=== PATIENT | female | born 1930 | race Caucasian/White ===

== ENCOUNTER 2020-11-12 19:27 | Inpatient (IN) ==
[2020-11-12] MEDS ORDERED: 0.9 % SODIUM CHLORIDE 1,000 ML IV SCH (20:58)
[2020-11-12] MEDS ORDERED: ACETAMINOPHEN 325 MG TABLET PO PRN (20:58)
[2020-11-12] MEDS ORDERED: ONDANSETRON 4 MG/2 ML VIAL IV PRN (20:58)
[2020-11-12] MEDS ORDERED: oxyCODONE/APAP 5/325MG TABLET PO PRN (20:58)
[2020-11-12] MEDS ORDERED: SENNOSIDES 1 TABLET PO SCH (21:00)
--- NOTE | 2020-11-12 21:16 | Internal Med History&Physical ---
HPI History of Present Illness Patient information: Note initiated : 11/12/20 at 9:02 pm Service Date, if different from initiated Date: [] Patient: Lisa Kwok 89 y/o F admitted on 11/12/20 for abdominal pain. Chief Complaint: [] History of present illness: Ms. Kwok is a 89 year old with a history of atrial fibrillation, rheumatoid arthritis, colon cancer status post right fox- colectomy who presented to [facility] for sudden onset of right pain in her right lower abdomen and right flank pain. According to signout report the ED physician and accompanying documentation, the CT scan showed right hydronephrosis, retroperitoneal adenopathy including in the ureter and a mass in the pelvis. Concern for recurrent colon cancer incasing the right ureter and causing right hydronephrosis. Urology consultation was not available at the outside hospital therefore the patient was transferred to [facility] for urgent intervention. Review of systems Unable to obtain due to severe distress secondary to pain. Head: Atraumatic, normal inspection. Eyes: normal appearance, no scleral icterus. Neck: full ROM Respiratory: no respiratory distress. Cardiovascular: normal rate and rhythm, S1, S2. GI/Abdominal: Right flank tenderness, right lower quadrant and inguinal tenderness. Extremities: full range of motion, nontender. Neurological: CN II-XII intact, intact motor, intact sensation. Psychiatric: Patient is anxious, appears to be in severe pain Skin: warm, normal color PFSH PFSH All Active Problems (Updated 11/12/20 @ 21:24 by Martín Hernandez MD) Hydronephrosis (Acute) Medical History (Updated 11/12/20 @ 21:24 by Martín Hernandez MD) Anxiety Atrial fibrillation Colon cancer Hypothyroidism Rheumatoid arthritis Surgical History (Updated 11/12/20 @ 21:24 by Martín Hernandez MD) History of right hemicolectomy Family History (Updated 11/12/20 @ 21:25 by Martín Hernandez MD) Brother No problems noted. MEDS/ALLERGIES Home Medications and Allergies Allergies Allergy/AdvReac Type Severity Reaction Status Date / Time Cyclobenzaprine Allergy Unknown Unknown Verified 11/12/20 21:29 doxycycline Allergy Unknown Unknown Verified 11/12/20 21:29 fluticasone Allergy Unknown Unknown Verified 11/12/20 21:29 nitrofurantoin Allergy Unknown Unknown Verified 11/12/20 21:29 phenylbutazone Allergy Unknown Unknown Verified 11/12/20 21:29 tramadol Allergy Unknown Unknown Verified 11/12/20 21:29 EXAM Constitutional Vitals: Temp Pulse Resp BP Pulse Ox 98.7 F 97 H 16 115/67 100 11/12/20 20:57 11/12/20 20:57 11/12/20 20:57 11/12/20 20:57 11/12/20 20:57 A/P Narrative A/P Narrative: Assessment: 89-year-old female with history of atrial fibril lation (on eliquis), rheumatoid arthritis, anxiety, hypothyroidism, colon cancer s/p right hemicolectomy directly admitted from [facility] ED for acute pain secondary to right hydronephrosis with CT scan showing retroperitoneal adenopathy causing ureteral occlusion. The patient was also found to have an acute kidney injury. Retroperitoneal adenopathy probably due to progression of colon cancer. #Right hydronephrosis due to retroperitoneal adenopathy #Acute kidney injury #Hyponatremia #Metabolic acidosis #Leukopenia #Macrocytic anemia #Atrial fibrillation: on eliquis #Rheumatoid arthritis: on methotrexate #Colon cancer Plan -Analgesics as needed. -IV fluid. -Urology consult. -Admission labs, INR, EKG -Follow renal function and urine output. -Renally dose meds. -Medication reconciliation, holding eliquis and methotrexate. -NPO -DVT PPx: SCDs for now -CODE STATUS: DNR, reviewed POLST -Disposition: Likely home with oncology and urology follow up. Time Spent With Patient Time: Total time spent is greater than 50% in coordination of care (as documented) at patient's floor/unit and/or counseling patient:
[2020-11-12] MEDS ORDERED: HYDROmorphone 0.5 MG/0.5 ML SYRINGE ONE (21:25)
[2020-11-12] MEDS: HYDROmorphone 0.5 MG/0.5 ML SYRINGE IV PRN (21:30)
[2020-11-12] MEDS: 0.9 % SODIUM CHLORIDE 10 ML SYRINGE IV SCH (21:33)
--- NOTE | 2020-11-12 21:33 | General Surgery Consult Note ---
HPI Data of Consult Primary Care Provider: Maninder Peters Family Provider: 89 YO white female with bilateral hydronephrosis and colon cancer with obstruction with marked adenopathy and flank pain worse right than left Now admitted in transfer from [facility]. Consult Narrative Reason for consult: colon cancer with bilateral hydronephrosis cc:: CC: Martín Hernandez MD PFSH PFSH All Active Problems (Updated 11/12/20 @ 21:24 by Martín Hernandez MD) Hydronephrosis (Acute) Medical History (Updated 11/12/20 @ 21:24 by Martín Hernandez MD) Anxiety Atrial fibrillation Colon cancer Hypothyroidism Rheumatoid arthritis Surgical History (Updated 11/12/20 @ 21:24 by Martín Hernandez MD) History of right hemicolectomy Family History Brother No problems noted. MEDS/ALLERGIES Home Medications and Allergies Allergies Allergy/AdvReac Type Severity Reaction Status Date / Time Cyclobenzaprine Allergy Unknown Unknown Verified 11/12/20 21:29 doxycycline Allergy Unknown Unknown Verified 11/12/20 21:29 fluticasone Allergy Unknown Unknown Verified 11/12/20 21:29 nitrofurantoin Allergy Unknown Unknown Verified 11/12/20 21:29 phenylbutazone Allergy Unknown Unknown Verified 11/12/20 21:29 tramadol Allergy Unknown Unknown Verified 11/12/20 21:29 Physical Examination Vital Signs Vital signs: Temp Pulse Resp BP Pulse Ox 98.7 F 97 H 16 115/67 100 11/12/20 20:57 11/12/20 20:57 11/12/20 20:57 11/12/20 20:57 11/12/20 20:57 General physical appearance General physical exam: severe distress (right flank pain), cachectic and chronically ill Cardiovascular Cardiovascular exam IM: Present irregular rhythm Abdomen Abdomen: Present tender (right flank tenderness ) Results Labs Result diagrams: 11/12/20 21:05 11/12/20 21:05 Labs: All other labs normal. A/P Narrative A/P Narrative: renal failure with bilateral hydronephrosis likely second to adenopathy retroperitoneal and recurrent cancer atrial fib with chronic anticoagulation with Eliquis Plan: consent for cysto and attempted right and possible left ureteral stent placement POA and patient understand and agree to plan as outlined understanding that may not be able to bypass and nephrostomy and still needs likely Oncology decision on chemo etc pending renal function Time Spent With Patient Time: Total time spent is greater than 50% in coordination of care (as documented) at patient's floor/unit and/or counseling patient:
[2020-11-12] MEDS ORDERED: ceFAZolin 2 GM in DEXTROSE 5% IN WATER 50 ML IV SCH (21:45)
[2020-11-12 22:04] LABS: Hematocrit 28.7 % (36.0-48.0); Mean Cell Volume 95.3 fL (80.0-100.0); Mean Corpuscular HGB Conc 34.8 g/dL (31.0-36.0); Mean Platelet Volume 9.3 fL (7.4-10.4); Platelet Count 224 K/mcL (140-440); RBC 3.01 M/mcL (4.00-5.20); Red Cell Distribution Width 14.9 % (11.5-14.5)
[2020-11-12] MEDS ORDERED: GLYCOPYRROLATE 0.2 MG/ML VIAL IV ONE (22:15)
[2020-11-12] MEDS ORDERED: PHENYLEPHRINE 10 MG/ML VIAL ONE (22:15)
[2020-11-12] MEDS ORDERED: fentaNYL 100 MCG/2 ML VIAL IV ONE (22:15)
[2020-11-12] MEDS ORDERED: DEXAMETHASONE 10 MG/ML VIAL ONE (22:15)
[2020-11-12] MEDS ORDERED: ONDANSETRON 4 MG/2 ML VIAL ONE (22:15)
[2020-11-12] MEDS ORDERED: KETAMINE 100 MG/ML ML ONE (22:15)
[2020-11-12] MEDS ORDERED: PROPOFOL 200 MG/20 ML VIAL IV ONE (22:15)
[2020-11-12] MEDS ORDERED: LIDOCAINE HCL/PF 100 MG/5 ML SYRINGE IV ONE (22:15)
[2020-11-12 22:17] LABS: INR 1.3 (0.9-1.1)
[2020-11-12] MEDS: DOCUSATE SODIUM 100 MG CAPSULE PO SCH (22:30)
[2020-11-12 22:32] LABS: Lymphocytes % 27 % (15-49); Monocytes % (Manual) 6 % (1-12); Platelet Estimate NORMAL (Normal); RBC Morphology NORMAL (Normal); Segmented Neutrophils % 67 % (38-78)
[2020-11-12] MEDS ORDERED: BENZOCAINE/MENTHOL 1 LOZENGE PO PRN (22:32)
[2020-11-12] MEDS ORDERED: METHOCARBAMOL 1,000 MG/10 ML VIAL IV PRN (22:32)
[2020-11-12] MEDS ORDERED: LACTATED RINGERS 250 ML IV PRN (22:32)
[2020-11-12] MEDS ORDERED: fentaNYL 100 MCG/2 ML VIAL IV PRN (22:32)
[2020-11-12] MEDS ORDERED: ACETAMINOPHEN 1,000 MG/100 ML BAG IV ONE ×2 (22:32→22:54)
[2020-11-12] MEDS ORDERED: IPRATROPIUM/ALBUTEROL 3 ML AMPUL.NEB NEB PRN (22:32)
[2020-11-12] MEDS ORDERED: LACTATED RINGERS 1,000 ML IV SCH (22:45)
[2020-11-12] MEDS ORDERED: BISACODYL 10 MG SUPP.RECT PR PRN (22:48)
[2020-11-12] MEDS ORDERED: ONDANSETRON 4 MG ODT TABLET SL PRN (22:48)
--- NOTE | 2020-11-12 22:48 | Operative Note ---
Operative Note Operative Note: Operation report--- date of service 12 November 2020 Preop diagnosis: Bilateral hydronephrosis right greater than left with right flank pain and retroperitoneal adenopathy Postop diagnosis: Same Procedure performed: Right ureteral stent placement with cystoscopy and right retrograde pyelography --no suture per urethra Surgeon: Tyrel Malik Anesthesia: BREEZY Rolle-General Additional procedure fluoroscopy Estimated blood loss negligible Drains: 7 x 26 cm double-J stent in no suture per Urethra right side--- 16 Mexican Cramer catheter to straight drainage Complications none Description: After adequate induction of general anesthesia the patient had timeout performed. Patient had repositioning in the dorsolithotomy position with prepping and draping in the usual fashion with iodine. Patient had cystoscopy next performed with a rigid cystoscope and infiltration of the bladder base with some nodularity consistent with likely colon cancer invasion present. No intrinsic mucosal anomaly was identified consistent with any bladder cancer. Patient had distortion of both ureteral orifice ease and with right side being more symptomatic and hydronephrotic Glidewire was passed into the orifice and manipulated up into the region of the right renal pelvis with coiling. To assure adequate placement retrograde pyelography was carried out with the open-ended 5 Mexican stent and again markedly hydronephrotic renal pelvis was noted. A 7 x 6 cm double-J stent was placed under fluoroscopic control with significant effluent noted consistent with drainage. Patient had decision made with her anticoagulation and symptomatic right side to not attempt left-sided stent placement at this point and bladder was drained with a 16 Mexican straight Cramer catheter after removal of the ureteral stent suture attachment. Patient had slight blood tinged urine noted and was subsequently returned to recovery area in stable condition of entire procedure well.
[2020-11-12 22:54] LABS: ALT/SGPT 12 U/L (<40); AST/SGOT 26 U/L (<32); Albumin 3.1 gm/dL (3.2-5.2); Albumin/Globulin Ratio 1.1 (1.0-2.3); Alkaline Phosphatase 82 U/L (39-117); Bilirubin,Direct < 0.2 mg/dL (0-0.3); Bilirubin,Total 0.4 mg/dL (0.1-1.0); Blood Urea Nitrogen 30 mg/dL (8-23); Calcium 8.6 mg/dL (8.6-10.4); Carbon Dioxide 19 mmol/L (22-30); Chloride 99 mmol/L (96-108); Globulin 2.7 gm/dL (2.2-3.7); Glomerular Filtration Rate 26; Glucose 84 mg/dL (70-105); Lactate Dehydrogenase 535 U/L (135-225); Phosphorous 1.7 mg/dL (2.5-4.5); Triglycerides 90 mg/dL (<150); Uric Acid 8.6 mg/dL (2.5-8.0)
[2020-11-12] MEDS ORDERED: IOVERSOL 20 ML VIAL IV ONE (22:59)
[2020-11-12] MEDS: NALOXONE HCL 0.4 MG/ML VIAL IV PRN ×2 (23:42→23:45)
[2020-11-13] MEDS: DEXTROSE 5%-NS 1,000 ML IV SCH ×2 (00:12→08:08)
[2020-11-13] MEDS: HYDROmorphone 0.5 MG/0.5 ML SYRINGE IV PRN ×3 (00:15→22:01)
--- NOTE | 2020-11-13 05:45 | XRay Report ---
INDICATION: ureteral stent placement TECHNIQUE: 0.3 minutes fluoroscopy utilized. Spot film demonstrates a right ureteral stent. Contrast material has been injected. Anatomic location of this contrast material is not certain. Calyces are not visualized. COMPARISON: None. IMPRESSION: Intraoperative fluoroscopy and spot film Interpreted and Authenticated by: Cameron Wilcox 11/13/20
[2020-11-13] MEDS ORDERED: 0.9 % SODIUM CHLORIDE 10 ML SYRINGE IV SCH (06:00)
[2020-11-13 06:49] LABS: Blood Urea Nitrogen 29 mg/dL (8-23); Calcium 8.4 mg/dL (8.6-10.4); Carbon Dioxide 18 mmol/L (22-30); Chloride 102 mmol/L (96-108); Glomerular Filtration Rate 26; Glucose 154 mg/dL (70-105)
--- NOTE | 2020-11-13 08:02 | General Surgery Progress Note ---
SUBJECTIVE Subjective Patient information: Note initiated : 11/13/20 at 7:59 am Service Date, if different from initiated Date: [] Patient: Lisa Kwok 89 y/o F admitted on 11/12/20 for abdominal pain. Chief Complaint: [] Interval history: Patient doing well this morning with marked pain relief and hungry No bowel movement yet Constitutional Vitals: Vital Signs Temp Pulse Resp BP Pulse Ox 97.6 F 91 H 14 97/59 96 11/13/20 07:47 11/13/20 07:47 11/13/20 07:47 11/13/20 07:47 11/13/20 07:47 Period Temp Pulse Resp BP Sys/Hayden Pulse Ox Last 24 Hr 97.1 F-98.7 F 85-121 10-24 97-133/58-84 95-100 Intake and Output 11/12/20 11/13/20 11/13/20 21:59 05:59 13:59 Intake Total 1160 Output Total 310 Balance 850 Weight 150 lb 9.6 oz Intake & Output: Intake & Output 11/12/20 11/13/20 11/13/20 21:59 05:59 13:59 Intake Total 1160 Output Total 310 Balance 850 Weight 150 lb 9.6 oz Intake: IV 660 Lactated Ringers 1,000 ml @ 20 510 mls/hr IV .Q24H [facility] Rx#: [id number] Ancef 2 gm In Dextrose 5% in 50 Water 50 ml @ 100 mls/hr IV PREOP [facility] Rx#:[id number] Oral 0 IV - Manual Only 500 Output: Urine Catheter Amount 300 Estimated Blood Loss 10 Other: Urine Appearance Cloudy Uretheral (Cramer) Cloudy Urine Color Blood Tinged Uretheral (Cramer) Dark Red Urine Odor Normal Additional findings Additional findings: Patient alert cooperative and oriented Comfortable and agree taking fluids Abdomen soft Back minimal CVA tenderness Cramer draining light pink-tinged urine A/P Narrative A/P Narrative: Assessment: Doing well status post right renal decompression with stent Renal function stabilized to slightly improved and abdominal pain and nausea resolved Plan: Continue to observe renal function return and urinary output Plan moved back to rehab facility-oncology evaluation in the next 24 to 48 hours from urology standpoint Continue to prevent constipation Time Spent With Patient Time: Total time spent is greater than 50% in coordination of care (as documented) at patient's floor/unit and/or counseling patient:
[2020-11-13] MEDS: 0.9 % SODIUM CHLORIDE 10 ML SYRINGE IV SCH ×3 (08:43→22:00)
[2020-11-13] MEDS: NEUTRA PHOS 1 PACKET PO SCH ×2 (08:44→20:37)
[2020-11-13] MEDS: DOCUSATE SODIUM 100 MG CAPSULE PO SCH ×2 (08:44→20:38)
[2020-11-13] MEDS: POLYETHYLENE GLYCOL 3350 17 GM PACKET PO SCH (10:07)
[2020-11-13] MEDS ORDERED: POLYETHYLENE GLYCOL 3350 17 GM PACKET PO PRN (11:14)
[2020-11-13] MEDS ORDERED: HYDROcodone/APAP 5/325MG TABLET PO PRN (11:14)
[2020-11-13] MEDS ORDERED: ALPRAZolam 0.25 MG TABLET PO PRN (11:14)
--- NOTE | 2020-11-13 12:22 | Internal Med Progress Note ---
SUBJECTIVE Subjective Patient information: Note initiated : 11/13/20 at 12:22 pm Service Date, if different from initiated Date: [] Patient: Lisa Kwok 89 y/o F admitted on 11/12/20 for abdominal pain. Chief Complaint: [] Interval history: Ms. Kwok is a 89 year old with a history of atrial fibrillation, rheumatoid arthritis, colon cancer status post right fox- colectomy who presented to [facility] for sudden onset of right pain in her right lower abdomen and right flank pain. According to signout report the ED physician and accompanying documentation, the CT scan showed right hydronephrosis, retroperitoneal adenopathy including in the ureter and a mass in the pelvis. Concern for recurrent colon cancer incasing the right ureter and causing right hydronephrosis. Urology consultation was not availabl e at the outside hospital therefore the patient was transferred to [facility] for urgent intervention. 11/13 Successful stent placed last night with improvement in pain overnight but today has had recurrent right lower quadrant pain. Repeat CT scan ordered. Head: Atraumatic, normal inspection. Eyes: normal appearance, no scleral icterus. Neck: full ROM Respiratory: no respiratory distress. Cardiovascular: normal rate and rhythm, S1, S2. GI/Abdominal: right lower quadrant tenderness Extremities: full range of motion, nontender. Neurological: CN II-XII intact, intact motor, intact sensation. Psychiatric: normal mood. Skin: warm, normal color Constitutional Vitals: Vital Signs Temp Pulse Resp BP Pulse Ox 97.5 F 87 18 103/56 96 11/13/20 12:00 11/13/20 12:00 11/13/20 12:00 11/13/20 12:00 11/13/20 07:47 Period Temp Pulse Resp BP Sys/Hayden Pulse Ox Last 24 Hr 97.1 F-98.7 F 85-121 10-24 97-133/56-84 95-100 Intake and Output 11/12/20 11/13/20 11/13/20 21:59 05:59 13:59 Intake Total 1160 1000 Output Total 310 Balance 850 1000 Weight 68.311 kg Intake & Output: Intake & Output 11/12/20 11/13/20 11/13/20 21:59 05:59 13:59 Intake Total 1160 1000 Output Total 310 Balance 850 1000 Weight 68.311 kg Intake: IV 660 1000 Dextrose 5%-Ns IV Solution 1, 1000 000 ml @ 125 mls/hr IV .Q8H [facility] Rx#:[id number] Lactated Ringers 1,000 ml @ 20 510 mls/hr IV .Q24H [facility] Rx#: [id number] Ancef 2 gm In Dextrose 5% in 50 Water 50 ml @ 100 mls/hr IV PREOP [facility] Rx#:[id number] Oral 0 IV - Manual Only 500 Output: Urine Catheter Amount 300 Estimated Blood Loss 10 Other: Urine Appearance Cloudy Uretheral (Cramer) Cloudy Urine Color Blood Tinged Uretheral (Cramer) Dark Red Urine Odor Normal OBJ DATA Labs CBC & Chem 7: 11/13/20 12:16 11/13/20 12:16 Labs: Abnormal Lab Results 11/13/20 11/12/20 11/12/20 05:08 21:27 21:05 WBC 3.0 L RBC 3.01 L Hgb 10.0 L Hct 28.7 L RDW 14.9 H PT 17.0 H INR 1.3 H Sodium 130 L Carbon Dioxide 18 L BUN 29 H Creatinine 1.7 H Glucose 154 H Uric Acid Calcium 8.4 L Phosphorus Lactate Dehydrogenase Total Protein Albumin 11/12/20 21:05 WBC RBC Hgb Hct RDW PT INR Sodium 129 L Carbon Dioxide 19 L BUN 30 H Creatinine 1.7 H Glucose Uric Acid 8.6 H Calcium Phosphorus 1.7 L Lactate Dehydrogenase 535 H Total Protein 5.8 L Albumin 3.1 L Meds: Medications Acetaminophen (Acetaminophen 325 Mg Tablet) 650 mg PO Q6HP PRN; Protocol PRN Reason: Per Pain Protocol/Fever > 101 Last Admin: 11/13/20 11:32 Dose: 650 mg Documented by: Hydrocodone Bitart/Acetaminophen (Hydrocodone/Apap 5/325mg Tablet) 1 tab PO Q 8HP PRN; Protocol PRN Reason: Pain (Scale 3-10) Last Admin: 11/13/20 11:32 Dose: 1 tab Documented by: Alprazolam (Alprazolam 0.5 Mg Tablet) 0.5 mg PO QHS [facility] Alprazolam (Alprazolam 0.25 Mg Tablet) 0.25 mg PO TIDP PRN PRN Reason: Anxiety Apixaban (Apixaban 5 Mg Tablet) 2.5 mg PO BID [facility] Bisacodyl (Bisacodyl 10 Mg Supp.Rect) 10 mg MN DAILYP PRN PRN Reason: Constipation Cholestyramine Resin (Cholestyramine/Aspartame 4 Gm Powd.Pack) 4 gm PO BID@0700,1900 [facility] Docusate Sodium (Docusate Sodium 100 Mg Capsule) 100 mg PO BID [facility] Last Admin: 11/13/20 08:44 Dose: 100 mg Documented by: Furosemide (Furosemide 20 Mg Tablet) 20 mg PO BID [facility] Hydromorphone HCl (Hydromorphone 0.5 Mg/0.5 Ml Syringe) 0.5 mg IV Q4HP PRN; Protocol PRN Reason: Per Pain Protocol Last Admin: 11/13/20 11:56 Dose: 0.5 mg Documented by: Levothyroxine Sodium (Levothyroxine 125 Mcg Tablet) 125 mcg PO ACB [facility] Magnesium Oxide (Magnesium Oxide 400 Mg Tablet) 400 mg PO BID [facility] Ondansetron HCl (Ondansetron 4 Mg Odt Tablet) 4 mg SL Q6HP PRN; Protocol PRN Reason: Nausea And Vomiting Oxybutynin Chloride (Oxybutynin Chloride 5 Mg Tab.Xl.24h) 15 mg PO HS [facility] Pantoprazole Sodium (Pantoprazole 40 Mg Tablet) 40 mg PO ACB [facility] Solifenacin 10 Mg (Tablet) 1 dose PO DAILY [facility] Polyethylene Glycol (Polyethylene Glycol 3350 17 Gm Packet) 17 gm PO DAILY [facility] Last Admin: 11/13/20 10:07 Dose: 17 gm Documented by: Potassium/Phosphorus/Sodium (Neutra Phos 1 Packet) 1 packet PO BID [facility] Stop: 11/13/20 21:01 Last Admin: 11/13/20 08:44 Dose: 1 packet Documented by: Senna (Sennosides 1 Tablet) 2 tab PO HS [facility] Last Admin: 11/12/20 22:30 Dose: Not Given Documented by: Sodium Chloride (0.9 % Sodium Chloride 10 Ml Syringe) 10 ml IV Q8 [facility] Last Admin: 11/13/20 08:43 Dose: 10 ml Documented by: A/P Narrative A/P Narrative: Assessment: 89-year-old female with history of atrial fibrillation (on eliquis), rheumatoid arthritis, anxiety, hypothyroidism, possible CKD?, colon cancer s/p right hemicolectomy directly admitted from [facility] ED for acute pain secondary attributed to right hydronephrosis. A CT abdomen/pelvis showed bilateral hydronephrosis, mod to severe right hydronephrosis and what appeared to be extensive retroperitoneal and pelvic lymphadenopathy. The patient was also found to have an acute kidney injury. Urology was not available at [facility] therefore the patient was directly admitted to [facility]. A right ureteral stent was placed soon after admission to [facility] followed by a dramatic improvement in pain overnight. The next day however the patient had similar recurrent right lower quadrant and flank pain. Abdominal xray showed the ureteral stent to be in proper position. The cause of her pain is not clear at this time, cancer related pain could be contri buting however usually does not present acutely. Goals of care were discussed with the patient and family members at bedside. The patient said she does not want to pursue cancer treatment and would prefer to be in a home environment. She is interested in hospice especially if it can be provided at home however she lived alone prior to recent events that placed her in a SNF for rehab. The patient was recently hospitalized in another facility for what sounds like congestive heart failure then discharged to a local SNF where she was doing rehab until presenting acutely to [facility] ED on 11/12. #Recurrent lower abdominal pain: colicky nature likely ureteral vs bowel source #Moderate to severe right hydronephrosis due to retroperitoneal adenopathy s/p right ureteral stent (11/12) #Left hydronephrosis: no stent necessary per urology #Acute kidney injury vs CKD #Hyponatremia: improved #Metabolic acidosis: non-anion gap #Leukopenia #Anemia #Chronic heart failure: probably diastolic at baseline #Left lower extremity edema: suspect this is from proximal lymphatic obstruction #Atrial fibrillation: on eliquis #Rheumatoid arthritis: on weekly methotrexate #Hx of colon cancer likely recurrent now with extensive mesenteric, retroperitoneal, inguinal lymphadenopathy, and liver lesions Plan -Repeat CT abd/pelvis wo contrast -Analgesics as needed. -Urology following. -Follow renal function and urine output. -Renally dose meds. -Home medications except notably holding diltiazem and methotrexate. -DVT PPx: Eliquis -CODE STATUS: DNR, reviewed POLST -Disposition: Likely back to SNF. Will probably start hospice soon at SNF or home w/ family. Time Spent With Patient Time: Total time spent is greater than 50% in coordination of care (as documented) at patient's floor/unit and/or counseling patient: QUALITY VTE Deep Vein Thrombosis/Pulmonary Embolism Present on Admission: No
--- NOTE | 2020-11-13 12:27 | XRay Report ---
INDICATION: Abdominal pain TECHNIQUE: Supine abdomen. COMPARISON: None FINDINGS:There is a right ureteral stent. Distal stent is coiled and in appropriate location for urinary bladder. Proximal stent is coiled and is in the right side of the abdomen. No right renal or ureteral calculi. There is an amorphous calcification overlying the left iliac crest. Anatomic location is not certain. Other multiple calcifications in the pelvis There is fecal material within the colon. No distended gas-filled small bowel. IMPRESSION: 1. Right sided ureteral stent 2. Amorphous calcification overlying the left iliac bone Interpreted and Authenticated by: Cameron Wilcox 11/13/20
[2020-11-13 12:52] LABS: Hematocrit 33.1 % (36.0-48.0); Hemoglobin 11.1 g/dL (12.0-15.0); Mean Cell Volume 100.6 fL (80.0-100.0); Mean Corpuscular HGB Conc 33.5 g/dL (31.0-36.0); Mean Platelet Volume 9.3 fL (7.4-10.4); Platelet Count 233 K/mcL (140-440); RBC 3.29 M/mcL (4.00-5.20); Red Cell Distribution Width 15.6 % (11.5-14.5); WBC 3.6 K/mcL (4.5-11.0)
[2020-11-13] MEDS ORDERED: HYDROmorphone 0.5 MG/0.5 ML SYRINGE IV ONE (13:13)
[2020-11-13 13:15] LABS: Blood Urea Nitrogen 28 mg/dL (8-23); Calcium 9.1 mg/dL (8.6-10.4); Carbon Dioxide 14 mmol/L (22-30); Chloride 102 mmol/L (96-108); Glomerular Filtration Rate 28; Glucose 166 mg/dL (70-105)
--- NOTE | 2020-11-13 15:02 | Cat Scan Report ---
INDICATION: severe abdmominal pain after ureteral stent COMPARISON: Previous examination dated 11/12/2020 TECHNIQUE: Axial images were obtained through the abdomen and pelvis. Sagittally and coronally reformatted images. FINDINGS: Lung bases:Small bilateral pleural effusions. No parenchymal consolidation or focal mass. Liver:There is a 16 mm low-density lesion in the right lobe of the liver. This is unchanged 11/12/2020. There is a probable 8 mm low-density lesion in the anterior segment of the right lobe, image 51. This is also stable. Liver contour is smooth Gallbladder, bilary:Gallbladder is not identified. No significant bile duct dilatation Spleen:No splenomegaly Pancreas:No pancreatic mass. No peripancreatic abnormality Adrenal glands: Probable 2 cm left adrenal nodule. This is unchanged. Kidneys, ureters, bladder: There is a right ureteral stent. The proximal portion of the stent is in the right renal collecting system. There is been significant interval decrease in right hydronephrosis. Distal portion of the stent is in the urinary bladder. There is an apparent calcified mass in the lower pole of the left kidney. This is unchanged. No left hydronephrosis No hydroureter. No ureteral stone No bladder calculus. There is a Cramer catheter within the urinary bladder Gastrointestinal:No significant diverticulosis or evidence for diverticulitis. No detectable colonic mass. Prominent fecal material throughout the colon. There is probable pneumatosis coli No mechanical small bowel obstruction. No small bowel dilatation. Appendix: The appendix is not well visualized. No evidence for appendicitis Vascular:There is calcification of the abdominal aorta. There is aortic dilatation. AP diameter of the abdominal aorta measures 2.4 cm. There is calcification at the origin of the superior mesenteric artery with probable stenosis. Lymphatic:There is a para-aortic mass consistent with para-aortic lymphadenopathy. Unchanged. There is probable iliac chain adenopathy, left worse than right. There is no right inguinal adenopathy. There is a soft tissue mass in the left inguinal region consistent with adenopathy. Mesentery, peritoneum:There is mesenteric adenopathy. There is mesenteric edema. Reproductive:Uterus is present. No adnexal mass Musculoskeletal:No lumbar compression fracture. There is grade 2 L5-S1 spondylolisthesis IMPRESSION: 1. Right ureteral stent as described above. Interval improvement of right hydronephrosis 2. Two low density lesions within the liver. These are unchanged since 11/12/2020 3. Calcified abdominal aorta with mild dilatation 4. Extensive retroperitoneal and mesenteric adenopathy. Left inguinal adenopathy 5. Subcutaneous and mesenteric edema 6. Findings consistent with constipation. There is probable pneumatosis coli 7. Grade 2 L5-S1 spondylolisthesis The exam was performed using radiation dose optimization techniques including, but not limited to, automated exposure control, adjustment of the mA and/or kV according to patient size and use of iterative reconstruction technique. Interpreted and Authenticated by: Cameron Wilcox 11/13/20
[2020-11-13] MEDS ORDERED: LACTULOSE 20 GM/30 ML ORAL.SOL PO ONE (16:00)
[2020-11-13] MEDS ORDERED: LACTULOSE 20 GM/30 ML ORAL.SOL PO PRN (16:27)
[2020-11-13] MEDS: CHOLESTYRAMINE/ASPARTAME 4 GM POWD.PACK PO SCH (18:45)
[2020-11-13] MEDS: MAGNESIUM OXIDE 400 MG TABLET PO SCH (20:37)
[2020-11-13] MEDS: FUROSEMIDE 20 MG TABLET PO SCH (20:39)
[2020-11-13] MEDS: SENNOSIDES 1 TABLET PO SCH (20:40)
[2020-11-13] MEDS: APIXABAN 5 MG TABLET PO SCH (20:41)
[2020-11-13] MEDS ORDERED: ALPRAZolam 0.5 MG TABLET PO SCH (21:00)
[2020-11-13] MEDS ORDERED: OXYBUTYNIN CHLORIDE 5 MG TAB.XL.24H PO SCH (21:00)
[2020-11-13] MEDS ORDERED: APIXABAN 5 MG TABLET PO SCH (21:00)
[2020-11-14] MEDS: HYDROmorphone 0.5 MG/0.5 ML SYRINGE IV PRN ×5 (02:18→21:48)
[2020-11-14] MEDS: 0.9 % SODIUM CHLORIDE 10 ML SYRINGE IV SCH ×3 (05:18→21:58)
[2020-11-14] MEDS ORDERED: PANTOPRAZOLE 40 MG TABLET PO SCH (07:30)
[2020-11-14] MEDS ORDERED: LEVOTHYROXINE 125 MCG TABLET PO SCH (07:30)
[2020-11-14 07:34] LABS: Blood Urea Nitrogen 28 mg/dL (8-23); Calcium 9.3 mg/dL (8.6-10.4); Carbon Dioxide 17 mmol/L (22-30); Chloride 102 mmol/L (96-108); Glomerular Filtration Rate 31; Glucose 97 mg/dL (70-105)
[2020-11-14] MEDS: SENNOSIDES 1 TABLET PO SCH (09:19)
[2020-11-14] MEDS: FUROSEMIDE 20 MG TABLET PO SCH (09:19)
[2020-11-14] MEDS: MAGNESIUM OXIDE 400 MG TABLET PO SCH (09:20)
[2020-11-14] MEDS: POLYETHYLENE GLYCOL 3350 17 GM PACKET PO SCH (09:20)
[2020-11-14] MEDS: APIXABAN 5 MG TABLET PO SCH (09:20)
[2020-11-14] MEDS ORDERED: HYDROmorphone 0.5 MG/0.5 ML SYRINGE IV ONE (09:57)
[2020-11-14] MEDS: CHOLESTYRAMINE/ASPARTAME 4 GM POWD.PACK PO SCH (10:09)
[2020-11-14] MEDS: DOCUSATE SODIUM 100 MG CAPSULE PO SCH ×2 (10:11→23:18)
--- NOTE | 2020-11-14 11:21 | Internal Med Progress Note ---
SUBJECTIVE Subjective Patient information: Note initiated : 11/14/20 at 11:15 am Service Date, if different from initiated Date: [] Patient: Lisa Kwok 89 y/o F admitted on 11/12/20 for abdominal pain. Chief Complaint: [] Interval history: Ms. Kwok is a 89 year old with a history of atrial fibrillation, rheumatoid arthritis, colon cancer status post right fox- colectomy who presented to [facility] for sudden onset of right pain in her right lower abdomen and right flank pain. According to signout report the ED physician and accompanying documentation, the CT scan showed right hydronephrosis, retroperitoneal adenopathy including in the ureter and a mass in the pelvis. Concern for recurrent colon cancer incasing the right ureter and causing right hydronephrosis. Urology consultation was not availabl e at the outside hospital therefore the patient was transferred to [facility] for urgent intervention. 11/13 Successful stent placed last night with improvement in pain overnight but today has had recurrent right lower quadrant pain. Repeat CT scan ordered. 11/14 Continues to require intermittent IV dilaudid for abdominal pain. Repeat CT scan showed improvement in right hydronephrosis. Constipation and probable pneumotosis coli. The patient is terminal due to cancer. Discussed goals of care and hospice. Anticipate discharge to SNF for hospice. CM following. Head: Atraumatic, normal inspection. Eyes: normal appearance, no scleral icterus. Neck: full ROM Respiratory: no respiratory distress. Cardiovascular: normal rate and rhythm, S1, S2. GI/Abdominal: right lower quadrant tenderness Extremities: full range of motion, nontender. Neurological: CN II-XII intact, intact motor, intact sensation. Psychiatric: normal mood. Skin: warm, normal color Constitutional Vitals: Vital Signs Temp Pulse Resp BP Pulse Ox 98.0 F 77 12 101/66 95 11/14/20 08:00 11/14/20 08:00 11/14/20 08:00 11/14/20 08:00 11/14/20 08:00 Period Temp Pulse Resp BP Sys/Hayden Pulse Ox Last 24 Hr 97.5 F-99.0 F 77-101 10-18 95-110/54-67 95-98 Intake and Output 11/13/20 11/14/20 11/14/20 21:59 05:59 13:59 Intake Total 450 300 Output Total 451 225 Balance -1 75 Weight 71.033 kg Intake & Output: Intake & Output 11/13/20 11/14/20 11/14/20 21:59 05:59 13:59 Intake Total 450 300 Output Total 451 225 Balance -1 75 Weight 71.033 kg Intake: Oral 450 300 Output: Urine Catheter Amount 400 Void Amount 50 225 # of times incontinent of urine 1 Other: Meal Dinner Breakfast Percent of Meal Consumed 75% 0% Feeding Ability Independent Urine Appearance Clear Clear Urine Color Pale Bright Yellow Urine Odor Normal Normal OBJ DATA Labs CBC & Chem 7: 11/13/20 12:16 11/14/20 05:04 Labs: Abnormal Lab Results 11/14/20 11/13/20 11/13/20 05:04 12:16 12:16 WBC 3.6 L RBC 3.29 L Hgb 11.1 L Hct 33.1 L MCV 100.6 H RDW 15.6 H PT INR Sodium 132 L 131 L Carbon Dioxide 17 L 14 L BUN 28 H 28 H Creatinine 1.5 H 1.6 H Glucose 166 H Uric Acid Calcium Phosphorus Lactate Dehydrogenase Total Protein Albumin 11/13/20 11/12/20 11/12/20 05:08 21:27 21:05 WBC 3.0 L RBC 3.01 L Hgb 10.0 L Hct 28.7 L MCV RDW 14.9 H PT 17.0 H INR 1.3 H Sodium 130 L Carbon Dioxide 18 L BUN 29 H Creatinine 1.7 H Glucose 154 H Uric Acid Calcium 8.4 L Phosphorus Lactate Dehydrogenase Total Protein Albumin 11/12/20 21:05 WBC RBC Hgb Hct MCV RDW PT INR Sodium 129 L Carbon Dioxide 19 L BUN 30 H Creatinine 1.7 H Glucose Uric Acid 8.6 H Calcium Phosphorus 1.7 L Lactate Dehydrogenase 535 H Total Protein 5.8 L Albumin 3.1 L Meds: Medications Acetaminophen (Acetaminophen 325 Mg Tablet) 650 mg PO Q6HP PRN; Protocol PRN Reason: Per Pain Protocol/Fever > 101 Last Admin: 11/13/20 11:32 Dose: 650 mg Documented by: Hydrocodone Bitart/Acetaminophen (Hydrocodone/Apap 5/325mg Tablet) 1 tab PO Q8HP PRN; Protocol PRN Reason: Pain (Scale 3-10) Last Admin: 11/13/20 11:32 Dose: 1 tab Documented by: Alprazolam (Alprazolam 0.5 Mg Tablet) 0.5 mg PO QHS [facility] Last Admin: 11/13/20 20:38 Dose: 0.5 mg Documented by: Alprazolam (Alprazolam 0.25 Mg Tablet) 0.25 mg PO TIDP PRN PRN Reason: Anxiety Apixaban (Apixaban 5 Mg Tablet) 2.5 mg PO BID [facility] Last Admin: 11/14/20 09:20 Dose: 2.5 mg Documented by: Bisacodyl (Bisacodyl 10 Mg Supp.Rect) 10 mg MO DAILYP PRN PRN Reason: Constipation Cholestyramine Resin (Cholestyramine/Aspartame 4 Gm Powd.Pack) 4 gm PO BID@0700,1900 [facility] Last Admin: 11/14/20 10:09 Dose: 4 gm Documented by: Docusate Sodium (Docusate Sodium 100 Mg Capsule) 100 mg PO BID [facility] Last Admin: 11/14/20 10:11 Dose: 100 mg Documented by: Furosemide (Furosemide 20 Mg Tablet) 20 mg PO BID [facility] Last Admin: 11/14/20 09:19 Dose: 20 mg Documented by: Hydromorphone HCl (Hydromorphone 0.5 Mg/0.5 Ml Syringe) 0.5 mg IV Q4HP PRN; Protocol PRN Reason: Per Pain Protocol Last Admin: 11/14/20 09:27 Dose: 0.5 mg Documented by: Lactulose (Lactulose 20 Gm/30 Ml Oral.Ghazal) 10 gm PO DAILYP PRN PRN Reason: Constipation Levothyroxine Sodium (Levothyroxine 125 Mcg Tablet) 125 mcg PO ACB [facility] Last Admin: 11/14/20 10:10 Dose: 125 mcg Documented by: Magnesium Oxide (Magnesium Oxide 400 Mg Tablet) 400 mg PO BID [facility] Last Admin: 11/14/20 09:20 Dose: 400 mg Documented by: Ondansetron HCl (Ondansetron 4 Mg Odt Tablet) 4 mg SL Q6HP PRN; Protocol PRN Reason: Nausea And Vomiting Oxybutynin Chloride (Oxybutynin Chloride 5 Mg Tab.Xl.24h) 15 mg PO [facility] Last Admin: 11/13/20 20:39 Dose: 15 mg Documented by: Pantoprazole Sodium (Pantoprazole 40 Mg Tablet) 40 mg PO ACB [facility] Last Admin: 11/14/20 10:10 Dose: 40 mg Documented by: Solifenacin 10 Mg (Tablet) 1 dose PO DAILY [facility] Polyethylene Glycol (Polyethylene Glycol 3350 17 Gm Packet) 17 gm PO DAILY [facility] Last Admin: 11/14/20 09:20 Dose: 17 gm Documented by: Senna (Sennosides 1 Tablet) 2 tab PO BID [facility] Last Admin: 11/14/20 09:19 Dose: 2 tab Documented by: Sodium Chloride (0.9 % Sodium Chloride 10 Ml Syringe) 10 ml IV Q8 [facility] Last Admin: 11/14/20 05:18 Dose: 10 ml Documented by: A/P Narrative A/P Narrative: Assessment: 89-year-old female with history of atrial fibrillation (on eliquis), rheumatoid arthritis, anxiety, hypothyroidism, possible CKD?, colon cancer s/p right hemicolectomy directly admitted from [facility] ED for acute pain secondary attributed to right hydronephrosis. A CT abdomen/pelvis showed bilateral hydronephrosis, mod to severe right hydronephrosis and what appeared to be extensive retroperitoneal and pelvic lymphadenopathy. The patient was also found to have an acute kidney injury. Urology was not available at [facility] therefore the patient was directly admitted to [facility]. A right ureteral stent was placed soon after admission to [facility] followed by a dramatic improvement in pain overnight. The next day however the patient had similar recurrent right lower quadrant and flank pain. Abdominal xray showed the ureteral stent to be in proper position. The cause of her pain is not clear at this time, cancer related pain could be contributing however usually does not present acutely. Goals of care were discussed with the patient and family members at bedside. The patient said she does not want to pursue cancer treatment and would prefer to be in a home envir onment. She is interested in hospice especially if it can be provided at home however she lived alone prior to recent events that placed her in a SNF for rehab. The patient was recently hospitalized in another facility for what sounds like congestive heart failure then discharged to a local SNF where she was doing rehab until presenting acutely to [facility] ED on 11/12. At this point, rehab at a SNF seems futile as the patient is near the end of life. Anticipate the patient will discharge to hospice at a SNF once successfully profiled. #Recurrent lower abdominal pain: colicky nature likely ureteral vs bowel source, likely related to cancer #Moderate to severe right hydronephrosis due to retroperitoneal adenopathy s/p right ureteral stent (11/12) #Acute kidney injury vs CKD: modestly improved #Hyponatremia: improved #Metabolic acidosis: non-anion gap #Leukopenia #Anemia #Chronic heart failure: probably diastolic, at baseline #Left lower extremity edema: suspect this is from proximal lymphatic obstruction #Atrial fibrillation: on eliquis #Rheumatoid arthritis: on weekly methotrexate #Hx of colon cancer likely recurrent now with extensive mesenteric, retroperitoneal, inguinal lymphadenopathy, and liver lesions Plan -Analgesics as needed. -Urology following. -Follow renal function and urine output. -Renally dose meds. -Home medications except notably holding diltiazem and methotrexate. -DVT PPx: Eliquis -CODE STATUS: DNR, reviewed POLST -Disposition: Likely to SNF for hospice. Time Spent With Patient Time: Total time spent is greater than 50% in coordination of care (as documented) at patient's floor/unit and/or counseling patient: QUALITY VTE Deep Vein Thrombosis/Pulmonary Embolism Present on Admission: No
--- NOTE | 2020-11-14 13:18 | Internal Med Progress Note ---
SUBJECTIVE Subjective Patient information: Note initiated : 11/14/20 at 1:16 pm Service Date, if different from initiated Date: [] Patient: Lisa Kwok 89 y/o F admitted on 11/12/20 for abdominal pain. Chief Complaint: [] Interval history: Ms. Kwok is a 89 year old with a history of atrial fibrillation, rheumatoid arthritis, colon cancer status post right fox- colectomy who presented to [facility] for sudden onset of right pain in her right lower abdomen and right flank pain. According to signout report the ED physician and accompanying documentation, the CT scan showed right hydronephrosis, retroperitoneal adenopathy including in the ureter and a mass in the pelvis. Concern for recurrent colon cancer incasing the right ureter and causing right hydronephrosis. Urology consultation was not available at the outside hospital therefore the patient was transferred to [facility] for urgent intervention. 11/13 Successful stent placed last night with improvement in pain overnight but today has had recurrent right lower quadrant pain. Repeat CT scan ordered. 11/14 Continues to require intermittent IV dilaudid for abdominal pain. Repeat CT scan showed improvement in right hydronephrosis. Constipation and probable pneumotosis coli. The patient is terminal due to cancer. Discussed goals of care and hospice. Anticipate discharge to SNF for hospice. CM following. Update for discharge. The patient will discharge to [facility] with comfort care orders and medications, probably discharge tomorrow per case management. 11/15 Constitutional Vitals: Vital Signs Temp Pulse Resp BP Pulse Ox 98.0 F 77 12 101/66 95 11/14/20 08:00 11/14/20 08:00 11/14/20 08:00 11/14/20 08:00 11/14/20 08:00 Period Temp Pulse Resp BP Sys/Hayden Pulse Ox Last 24 Hr 97.6 F-99.0 F 77-101 10-14 95-110/54-67 95-98 Intake and Output 11/13/20 11/14/20 11/14/20 21:59 05:59 13:59 Intake Total 450 300 Output Total 451 225 Balance -1 75 Weight 71.033 kg Intake & Output: Intake & Output 11/13/20 11/14/20 11/14/20 21:59 05:59 13:59 Intake Total 450 300 Output Total 451 225 Balance -1 75 Weight 71.033 kg Intake: Oral 450 300 Output: Urine Catheter Amount 400 Void Amount 50 225 # of times incontinent of urine 1 Other: Meal Dinner Breakfast Percent of Meal Consumed 75% 0% Feeding Ability Independent Urine Appearance Clear Clear Urine Color Pale Bright Yellow Urine Odor Normal Normal Exam: General: Alert, Awake, No acute Distress Eyes/N/T: EOMI, Head/Neck: neck supple, CV: RRR, No murmurs, Pulm: Clear b/l, no wheezing/rhonchi/rales Abd: soft, nontender, +BS x4 Ext: no clubbing/cyanosis/edema Neuro: Alert, no focal deficits, moves all extremities, Skin: warm/dry OBJ DATA Labs CBC & Chem 7: 11/13/20 12:16 11/14/20 05:04 Labs: Abnormal Lab Results 11/14/20 11/13/20 11/13/20 05:04 12:16 12:16 WBC 3.6 L RBC 3.29 L Hgb 11.1 L Hct 33.1 L MCV 100.6 H RDW 15.6 H PT INR Sodium 132 L 131 L Carbon Dioxide 17 L 14 L BUN 28 H 28 H Creatinine 1.5 H 1.6 H Glucose 166 H Uric Acid Calcium Phosphorus Lactate Dehydrogenase Total Protein Albumin 11/13/20 11/12/20 11/12/20 05:08 21:27 21:05 WBC 3.0 L RBC 3.01 L Hgb 10.0 L Hct 28.7 L MCV RDW 14.9 H PT 17.0 H INR 1.3 H Sodium 130 L Carbon Dioxide 18 L BUN 29 H Creatinine 1.7 H Glucose 154 H Uric Acid Calcium 8.4 L Phosphorus Lactate Dehydrogenase Total Protein Albumin 11/12/20 21:05 WBC RBC Hgb Hct MCV RDW PT INR Sodium 129 L Carbon Dioxide 19 L BUN 30 H Creatinine 1.7 H Glucose Uric Acid 8.6 H Calcium Phosphorus 1.7 L Lactate Dehydrogenase 535 H Total Protein 5.8 L Albumin 3.1 L Meds: Medications Acetaminophen (Acetaminophen 325 Mg Tablet) 650 mg PO Q6HP PRN; Protocol PRN Reason: Per Pain Protocol/Fever > 101 Last Admin: 11/13/20 11:32 Dose: 650 mg Documented by: Hydrocodone Bitart/Acetaminophen (Hydrocodone/Apap 5/325mg Tablet) 1 tab PO Q8HP PRN; Protocol PRN Reason: Pain (Scale 3-10) Last Admin: 11/13/20 11:32 Dose: 1 tab Documented by: Alprazolam (Alprazolam 0.5 Mg Tablet) 0.5 mg PO QHS [facility] Last Admin: 11/13/20 20:38 Dose: 0.5 mg Documented by: Alprazolam (Alprazolam 0.25 Mg Tablet) 0.25 mg PO TIDP PRN PRN Reason: Anxiety Apixaban (Apixaban 5 Mg Tablet) 2.5 mg PO BID [facility] Last Admin: 11/14/20 09:20 Dose: 2.5 mg Documented by: Bisacodyl (Bisacodyl 10 Mg Supp.Rect) 10 mg HI DAILYP PRN PRN Reason: Constipation Cholestyramine Resin (Cholestyramine/Aspartame 4 Gm Powd.Pack) 4 gm PO BID@0700,1900 [facility] Last Admin: 11/14/20 10:09 Dose: 4 gm Documented by: Docusate Sodium (Docusate Sodium 100 Mg Capsule) 100 mg PO BID [facility] Last Admin: 11/14/20 10:11 Dose: 100 mg Documented by: Furosemide (Furosemide 20 Mg Tablet) 20 mg PO BID [facility] Last Admin: 11/14/20 09:19 Dose: 20 mg Documented by: Hydromorphone HCl (Hydromorphone 0.5 Mg/0.5 Ml Syringe) 0.5 mg IV Q4HP PRN; Protocol PRN Reason: Per Pain Protocol Last Admin: 11/14/20 09:27 Dose: 0.5 mg Documented by: Lactulose (Lactulose 20 Gm/30 Ml Oral.Ghazal) 10 gm PO DAILYP PRN PRN Reason: Constipation Levothyroxine Sodium (Levothyroxine 125 Mcg Tablet) 125 mcg PO ACB [facility] Last Admin: 11/14/20 10:10 Dose: 125 mcg Documented by: Magnesium Oxide (Magnesium Oxide 400 Mg Tablet) 400 mg PO BID [facility] Last Admin: 11/14/20 09:20 Dose: 400 mg Documented by: Ondansetron HCl (Ondansetron 4 Mg Odt Tablet) 4 mg SL Q6HP PRN; Protocol PRN Reason: Nausea And Vomiting Oxybutynin Chloride (Oxybutynin Chloride 5 Mg Tab.Xl.24h) 15 mg PO HS [facility] Last Admin: 11/13/20 20:39 Dose: 15 mg Documented by: Pantoprazole Sodium (Pantoprazole 40 Mg Tablet) 40 mg PO ACB [facility] Last Admin: 11/14/20 10:10 Dose: 40 mg Documented by: Solifenacin 10 Mg (Tablet) 1 dose PO DAILY [facility] Last Admin: 11/14/20 12:05 Dose: Not Given Documented by: Polyethylene Glycol (Polyethylene Glycol 3350 17 Gm Packet) 17 gm PO DAILY [facility] Last Admin: 11/14/20 09:20 Dose: 17 gm Documented by: Senna (Sennosides 1 Tablet) 2 tab PO BID [facility] Last Admin: 11/14/20 09:19 Dose: 2 tab Documented by: Sodium Chloride (0.9 % Sodium Chloride 10 Ml Syringe) 10 ml IV Q8 [facility] Last Admin: 11/14/20 05:18 Dose: 10 ml Documented by: A/P Narrative A/P Narrative: A: #Recurrent lower abdominal pain: colicky nature likely ureteral vs bowel source, likely related to cancer #Moderate to severe right hydronephrosis due to retroperitoneal adenopathy s/p right ureteral stent (11/12) #Acute kidney injury vs CKD: modestly improved #Hyponatremia: improved #Metabolic acidosis: non-anion gap #Leukopenia #Anemia #Chronic heart failure: probably diastolic, at baseline #Left lower extremity edema: suspect this is from proximal lymphatic obstruction #Atrial fibrillation: on eliquis #Rheumatoid arthritis: on weekly methotrexate #Hx of colon cancer likely recurrent now with extensive mesenteric, retroperitoneal, inguinal lymphadenopathy, and liver lesions Plan -Analgesics as needed. -Urology following. -Follow renal function and urine output. -Renally dose meds. -Home medications except notably holding diltiazem and methotrexate. -Disposition Likely to SNF for hospice. -DVT PPx: Eliquis CODE STATUS: DNR Time Spent With Patient Time: Total time spent is greater than 50% in coordination of care (as documented) at patient's floor/unit and/or counseling patient: QUALITY VTE Deep Vein Thrombosis/Pulmonary Embolism Present on Admission: No
--- NOTE | 2020-11-14 13:21 | Discharge Summary ---
Discharge Provider Provider Patient information: Note initiated : 11/14/20 at 1:18 pm Service Date, if different from initiated Date: [] Patient: Lisa Kwok 89 y/o F admitted on 11/12/20 for abdominal pain. Chief Complaint: [] Date of admission: 11/12/20 20:54 Discharge date: 11/15/20 Primary care physician: Maninder Peters Consults: 11/12/20 20:03 Consult to Physician [CONS] Routine Comment: Consulting Provider: Martín Hernandez Reason For Exam: Physician to Consult 11/12/20 20:21 Consult to Physician [CONS] Routine Comment: Consulting Provider: Tyrel Malik Reason For Exam: Physician to Consult 11/12/20 20:58 Consult to Physician [CONS] Routine Comment: Ureteral obstruction Consulting Provider: Tyrel Malik Reason For Exam: Physician to Consult Discharge Meds Discharge Medications Home Medications acetaminophen 650 mg PO Q6H PRN 11/12/20 [History Confirmed 11/12/20 Last Taken Unknown] polyethylene glycol 3350 17 g PO QDAY PRN 11/12/20 [History Confirmed 11/12/20 Last Taken Unknown] solifenacin 10 mg PO QDAY 11/12/20 [History Confirmed 11/12/20 Last Taken Unknown] hyoscyamine sulfate 0.125 mg SL Q4HP PRN #10 tab 11/15/20 [Rx Last Taken Unknown] lorazepam 1 - 2 mg SL Q2HP PRN #20 tab 11/15/20 [Rx Last Taken Unknown] morphine concentrate 10 - 20 mg SL Q1-2HP PRN #30 ml 11/15/20 [Rx Last Taken Unknown] ondansetron 4 mg SL Q4HP PRN #20 tab 11/15/20 [Rx Last Taken Unknown] COURSE Hospital Course Hospital course: Interval history: Ms. Kwok is a 89 year old with a history of atrial f ibrillation, rheumatoid arthritis, colon cancer status post right fox-colectomy who presented to [facility] for sudden onset of right pain in her right lower abdomen and right flank pain. According to signout report the ED physician and accompanying documentation, the CT scan showed right hydronephrosis, retroperitoneal adenopathy including in the ureter and a mass in the pelvis. Concern for recurrent colon cancer incasing the right ureter and causing right hydronephrosis. Urology consultation was not available at the outside hospital therefore the patient was transferred to [facility] for urgent intervention. 11/13 Successful stent placed last night with improvement in pain overnight but today has had recurrent right lower quadrant pain. Repeat CT scan ordered. 11/14 Continues to require intermittent IV dilaudid for abdominal pain. Repeat CT scan showed improvement in right hydronephrosis. Constipation and probable pneumotosis coli. The patient is terminal due to cancer. Discussed goals of care and hospice. Anticipate discharge to SNF for hospice. CM following. Update for discharge. The patient will discharge to [facility] with comfort care orders and medications, probably discharge tomorrow per case management. Just had a discussion with the POA, nephew I believe, as well as adult protective caseworker and health preparation department supervisor. We will transition patient to comfort care only and patient will likely transition to nursing facility tomorrow. 11/15 No overnight event or changes in status. A: #Recurrent lower abdominal pain: colicky nature likely ureteral vs bowel source, likely related to cancer #Moderate to severe right hydronephrosis due to retroperitoneal adenopathy s/p right ureteral stent (11/12) #Acute kidney injury vs CKD: modestly improved #Hyponatremia: improved #Metabolic acidosis: non-anion gap #Leukopenia #Anemia #Chronic heart failure: probably diastolic, at baseline #Left lower extremity edema: suspect this is from proximal lymphatic obstruction #Atrial fibrillation: on eliquis #Rheumatoid arthritis: on weekly methotrexate #Hx of colon cancer likely recurrent now with extensive mesenteric, retroperitoneal, inguinal lymphadenopathy, and liver lesions Discharge diagnosis: Recurrent lower abdominal pain right hydronephrosis retroperitoneal adenopa Secondary discharge diagnosis: Significant retroperitoneal adenopathy acute kidney injury metabolic disturbance heart failure history of A. fib rheumatoid arthritis history of colon cancer Time Spent with Patient Time attestation: Total time spent providing and/or coordinating discharge services: Time spent: Greater than 30 minutes EXAM Constitutional Vitals: Temp Pulse Resp BP Pulse Ox 98.0 F 77 12 101/66 95 11/14/20 08:00 11/14/20 08:00 11/14/20 08:00 11/14/20 08:00 11/14/20 08:00 Discharge Data Data Completed and Pending Labs on day of discharge: Labs from last 24 hours 11/14/20 05:04 Sodium 132 L Potassium 4.5 Chloride 102 Carbon Dioxide 17 L Anion Gap 13.0 BUN 28 H Creatinine 1.5 H GFR Calculation 31 Glucose 97 Calcium 9.3 Discharge Plan Patient/Caregiver Discharge Instructions Activity: increase activity as tolerated Diet: Regular Diet Activity Restrictions/Additional Instructions: Follow-up with PCP in 3 to 7 days Follow-up with hospice upon discharge. Prescriptions: New hyoscyamine sulfate 0.125 mg Tablet, Sublingual 0.125 mg SL Q4HP PRN (Reason: secretions) Qty: 10 RF: 0 lorazepam 1 mg Tablet 1 - 2 mg SL Q2HP PRN (Reason: anxiety) Qty: 20 RF: 0 morphine concentrate 100 mg/5 mL (20 mg/mL) Solution 10 - 20 mg SL Q1-2HP PRN (Reason: Per Pain Protocol) Qty: 30 RF: 0 ondansetron 4 mg Tablet,Disintegrating 4 mg SL Q4HP PRN (Reason: Nausea And Vomiting) Qty: 20 RF: 0 Continued polyethylene glycol 3350 17 gram Powder In Packet 17 g PO QDAY PRN (Reason: Constipation) RF: 0 solifenacin 10 mg Tablet 10 mg PO QDAY RF: 0 acetaminophen 325 mg Tablet 650 mg PO Q6H PRN (Reason: Pain) RF: 0 Discontinued nystatin 100,000 unit/mL Suspension 100,000 unit BUCCAL QID RF: 0 oxybutynin chloride 15 mg Tablet Extended Release 24 Hr 15 mg PO QHS RF: 0 methotrexate sodium 25 mg/mL Solution 25 mg IM WEEKLY RF: 0 pantoprazole 40 mg Tablet,Delayed Release (Dr/Ec) 40 mg PO QDAY RF: 0 Eliquis 2.5 mg Tablet 2.5 mg PO BID RF: 0 magnesium oxide 400 mg magnesium Tablet 400 mg PO BID RF: 0 hydrocodone-acetaminophen 5-325 mg Tablet 1 tab PO Q8H PRN (Reason: Pain (Sclae 3-10)) RF: 0 ciprofloxacin HCl 250 mg Tablet 250 mg PO BID RF: 0 alprazolam 0.5 mg Tablet 0.5 mg PO QHS RF: 0 alprazolam 0.25 mg Tablet 0.25 mg PO TID PRN (Reason: Anxiety) RF: 0 diltiazem HCl 120 mg Tablet 120 mg PO QDAY RF: 0 levothyroxine 125 mcg Tablet 125 mcg PO QDAY RF: 0 furosemide [Lasix] 20 mg Tablet 20 mg PO BID RF: 0 cholestyramine (with sugar) 4 gram Powder 4 g PO BID RF: 0 Follow Up Plan Patient Disposition: Xfer SNF Prognosis: Serious I certify that the patient requires SNF services: Yes Overall status at discharge: patient is not back to baseline Discharge Orders: Discharge Order (Routine); Ordered 11/15/20 Ordered By: Rudy Morton [facility] VTE Deep Vein Thrombosis/Pulmonary Embolism Present on Admission: No
[2020-11-14] MEDS ORDERED: LACTOPEROXI/GLUC OXID/POT THIO 1 EACH GEL..EA. TOPICAL PRN (14:49)
[2020-11-14] MEDS ORDERED: HYOSCYAMINE SULFATE 0.125 MG TABLET SL PRN (14:49)
[2020-11-14] MEDS ORDERED: LORazepam 1 MG TABLET SL PRN (14:49)
[2020-11-14] MEDS ORDERED: ONDANSETRON 4 MG ODT TABLET SL PRN (14:49)
[2020-11-14] MEDS ORDERED: morphine 20 MG/ML ORAL.CONC SL PRN ×2 (14:49→17:14)
[2020-11-14] MEDS: morphine 20 MG/ML ORAL.CONC SL PRN (23:19)
[2020-11-15] MEDS: morphine 20 MG/ML ORAL.CONC SL PRN ×5 (01:39→10:57)
[2020-11-15] MEDS: HYDROmorphone 0.5 MG/0.5 ML SYRINGE IV PRN (04:28)
[2020-11-15] MEDS: 0.9 % SODIUM CHLORIDE 10 ML SYRINGE IV SCH (04:29)
[2020-11-15] MEDS: DOCUSATE SODIUM 100 MG CAPSULE PO SCH (09:08)
== END 2020-11-15 11:15 | DRG 694 ==
LOC: MEDSUR 20:54
PROVIDERS: ADMIT Internal Medicine; ATTEND Internal Medicine